=== PATIENT | female | born 1985 | race Caucasian/White ===

== ENCOUNTER 2020-08-01 13:20 | Emergency (ER) | payer MEDICAID ==
[~2020-08-01] VITALS: Ht 160 cm; Wt 78.0 kg
[~2020-08-01 13:20] MED LIST: ALBU8HFA PO
[2020-08-01 13:46] VITALS: BP 106/66
[2020-08-01] MEDS ORDERED: ketorolac tromethamine 15mg/ml inj. IM ONE (15:10)
[2020-08-01] MEDS ORDERED: CYCL-1 PO (15:57)
[2020-08-01] MEDS ORDERED: IBUP-1984 PO (15:57)
== END 2020-08-01 16:20 | disposition home or self-care (01) ==
LOC: ER 13:21
DX: S16.1XXA Strain of muscle, fascia and tendon at neck level, initial encounter (principal); Z59.0 Homelessness; Z88.2 Allergy status to sulfonamides; Z79.899 Other long term (current) drug therapy; X58.XXXA Exposure to other specified factors, initial encounter; Y93.89 Activity, other specified; Y92.89 Other specified places as the place of occurrence of the external cause; Y99.8 Other external cause status
CPT/HCPCS: 72125; 96372; 99284; J1885

== ENCOUNTER 2022-01-30 13:41 | Emergency (ER) | payer MEDICAID ==
[~2022-01-30] VITALS: Ht 152.4 cm; Wt 81.8 kg
[~2022-01-30 13:41] MED LIST changes: +CYCL-1 PO
--- NOTE | 2022-01-30 14:56 | NUR ---
PT REPORTS SHE THINKS SHE "OVERDOSED ON WEED". PT STATES SHE SMOKED WEED AROUND 1100 THIS MORNING AND GOT REALLY PARANOID AND THOUGHT SHE WAS GOING TO HURT HERSELF. PT SAID SHE THINKS THE HIGH IS WEARING OFF AND SHE FEELS CALM NOW. PT DENIES ANY CURRENT THOUGHTS OF SI/ HI. PT APPROPRIATE, A&O X4.
[2022-01-30 15:51] LABS: BASOPHILS % (AUTO) 0.3 % (0-1); EOSINOPHILS # (AUTO) 0.1 X10'3 (0-0.9); EOSINOPHILS % (AUTO) 0.6 % (0-6); HEMATOCRIT 43.3 % (35.0-45.0); LYMPHOCYTES # (AUTO) 2.3 X10'3 (1.1-4.8); LYMPHOCYTES % (AUTO) 20.8 % (21-51); MEAN CORPUSCULAR HEMOGLOBIN 32.1 PG (27.0-31.0); MEAN CORPUSCULAR HGB CONC 34.5 g/dL (33.0-36.5); MEAN CORPUSCULAR VOLUME 92.9 FL (78-98); MEAN PLATELET VOLUME 7.4 FL (7.4-10.4); MONOCYTES # (AUTO) 0.8 X10'3 (0-0.9); MONOCYTES % (AUTO) 7.4 % (2-12); NEUTROPHILS # (AUTO) 7.7 X10'3 (1.8-7.7); NEUTROPHILS % (AUTO) 70.9 % (42-75); PLATELET COUNT 373 X10'3 (140-440); RED BLOOD COUNT 4.67 X10'6 (4.20-5.60); WHITE BLOOD COUNT 10.9 X10'3 (4.5-11.0)
[2022-01-30 16:01] LABS: CLARITY,URINE CLEAR (Clear); COLOR,URINE YELLOW (Yellow); GLUCOSE, URINE NEGATIVE (Neg); KETONES,URINE 15 mg/dl (Neg); LEUKOCYTE ESTERASE ,URINE NEGATIVE (Neg); NITRITES, URINE NEGATIVE (Neg); OCCULT BLOOD,URINE MODERATE (Neg); PROTEIN,URINE NEGATIVE (Neg); UROBILINOGEN,URINE 0.2 E.U/dL (0.2-1.0)
[2022-01-30 16:05] LABS: UA COLLECTION TYPE CLN CATCH MIDSTREAM
[2022-01-30 16:06] LABS: URINE HCG NEGATIVE (NEG)
[2022-01-30 16:07] LABS: URINE AMPHETAMINE SCREEN POSITIVE (Neg); URINE BARBITUATE SCREEN NEGATIVE (Neg); URINE BENZODIAZEPINES SCREEN NEGATIVE (Neg); URINE CANNABINOID SCREEN NEGATIVE (Neg); URINE COCAINE SCREEN NEGATIVE (Neg); URINE METHADONE SCREEN NEGATIVE (Neg); URINE OPIATE SCREEN NEGATIVE (Neg); URINE PHENCYCLIDINE SCREEN NEGATIVE (Neg)
[2022-01-30 16:10] LABS: SQUAMOUS EPITHELIAL CELL,UR MANY /LPF (FEW)
[2022-01-30 16:11] LABS: MUCUS STRANDS MANY /LPF (Neg)
[2022-01-30 16:16] LABS: ALANINE AMINOTRANSFERASE 12 U/L (12-78); ALBUMIN 3.4 G/DL (3.4-5.0); ALBUMIN/GLOBULIN RATIO 0.9 (1.1-1.5); ALKALINE PHOSPHATASE 90 IU/L (46-116); ANION GAP 7 (8-16); ASPARTATE AMINO TRANSFERASE 16 U/L (10-37); BILIRUBIN,TOTAL 0.3 MG/DL (0.1-1.0); BLOOD UREA NITROGEN 5 MG/DL (7-18); BUN/CREATININE RATIO 5.8 (6.6-38.0); CALCIUM 8.6 MG/DL (8.5-10.1); CHLORIDE 105 MMOL/L (99-107); CREATININE 0.86 MG/DL (0.40-0.90); GLUCOSE 117 MG/DL (70-104); SODIUM 139 MMOL/L (135-145); TOTAL CARBON DIOXIDE 27.5 MMOL/L (24-32); eGFR 75 ML/MIN
[2022-01-30 16:18] LABS: BACTERIA,URINE 1+ /HPF (Neg)
[2022-01-30 16:19] LABS: ETHANOL < 0.010 GM/DL (0.0-0.010)
[2022-01-30 16:30] LABS: WBC,URINE 0-4 /HPF (0-4)
[2022-01-30] MEDS ORDERED: potassium Cl 20 mEq SR tablet PO STA (16:31)
--- NOTE | 2022-01-30 18:29 | NUR ---
REPORT CALLED TO EDWIGE DUMONT. GOING TO ROOM 23 OVERFLOW
[2022-01-30] MEDS ORDERED: quetiapine 100mg tablet PO ONE (20:00)
[2022-01-30] MEDS ORDERED: OLANZapine 2.5MG tablet PO SCH (20:00)
--- NOTE | 2022-01-30 20:06 | NUR ---
One to one with the patient. She reports both auditory and visual hallucinations. She reports the voices tell her "all sorts of things" but she denies that they tell her to harm herself. She also reports she is seeing ghosts and spirits. She is very pleasant. Her speech is loud and fast. She denies suicidal thoughts or thoughts to harm others. She is aware that she is on a 5150 hold. Discussed patient report of psychosis with PA and orders received
--- NOTE | 2022-01-30 20:29 | NUR ---
The patient accepted medications and appears to be trying to sleep
[2022-01-30] MEDS ORDERED: NO HOME MEDS (20:30)
--- NOTE | 2022-01-30 21:31 | NUR ---
The patient up briefly and requested juice and is now resting on her bed.
--- NOTE | 2022-01-30 22:11 | NUR ---
The patient is awake and talking to herself in response to internal stimuli.
[2022-01-30] MEDS ORDERED: LORazepam 1 MG tablet PO ONE (22:45)
[2022-01-30] MEDS ORDERED: OLANZapine 2.5MG tablet PO ONE (22:45)
--- NOTE | 2022-01-30 23:01 | NUR ---
RECORDS SENT TO [facility]
--- NOTE | 2022-01-30 23:23 | NUR ---
The patient is restless but talking less to herself. She requested and received HS snack
--- NOTE | 2022-01-31 00:04 | NUR ---
The patient is periodically talking to people who are not there
--- NOTE | 2022-01-31 00:20 | NUR ---
The patient increasingly disorganized and unable to find her way back to her bed without direction. Dr. Saab made aware and zyprexa discontinued.
--- NOTE | 2022-01-31 01:12 | NUR ---
The patient appears to be sleeping
--- NOTE | 2022-01-31 03:13 | NUR ---
The patient appears to be sleeping
--- NOTE | 2022-01-31 05:10 | NUR ---
The patient appears to be sleeping
--- NOTE | 2022-01-31 05:56 | NUR ---
The patient appears to be sleeping
--- NOTE | 2022-01-31 06:49 | NUR ---
Patient is sleeping on her right side. No signs of distress. In view from nurses station.
--- NOTE | 2022-01-31 09:22 | NUR ---
Patient has self repositioned into a prone position. She remains sleeping quietly.
--- NOTE | 2022-01-31 12:06 | NUR ---
Nurse to nurse report to Venus mehta [facility]. Patients case will be reviewed for possible admit.
--- NOTE | 2022-01-31 12:22 | NUR ---
[facility] [place] 2[place] office called. Randa Will be transfered to [facility] around 2:30-3:00 pm today. The accepting PA will be Manoj Mejias.
--- NOTE | 2022-01-31 13:34 | NUR ---
Patient is sleeping quietly in a suping position.
--- NOTE | 2022-01-31 14:18 | NUR ---
Patient is being transfered to [facility].
[2022-01-31 14:21] VITALS: BP 103/67
== END 2022-01-31 14:31 ==
LOC: ER 13:41
DX: F79 Unspecified intellectual disabilities (principal); Z20.822 Contact with and (suspected) exposure to COVID-19; F32.A Depression, unspecified; F20.9 Schizophrenia, unspecified; F12.90 Cannabis use, unspecified, uncomplicated; Z88.2 Allergy status to sulfonamides; Z79.899 Other long term (current) drug therapy
CPT/HCPCS: 36415; 80053; 80305; 80320; 81001; 81025; 84443; 85025; 87635; 99285; C9803